=== PATIENT | male | born 1980 | race Hispanic/Latino ===

== ENCOUNTER 2018-11-20 12:11 | Emergency (ER) | payer SELFPAY ==
--- NOTE | 2018-11-20 14:07 | RAD REPORT ---
EXAM DESCRIPTION: RAD - Shoulder Left 2 View - 11/20/2018 2:00 pm CLINICAL HISTORY: Left shoulder pain status post fall FINDINGS: No fracture is seen. Mild widening of the AC joint may indicate a sprain of the ligament
--- NOTE | 2018-11-20 14:18 | EDPHYS ---
Physician Documentation [facility] Name: Nate Grant Age: 38 yrs Sex: Male : 1980 Arrival Date: 11/20/2018 Time: 12:14 Bed 10 Private MD: ED Physician Trenton Humphries Historical: - Allergies: 11/20 12:44 No Known Allergies; tw2 - Home Meds: 12:44 None [Active]; tw2 - PMHx: 12:44 None; tw2 - PSHx: 12:44 None; tw2 - Immunization history:: Adult Immunizations. - Social history:: Smoking status: . - Ebola Screening: : Patient denies travel to an Ebola-affected area in the 21 days before illness onset. Vital Signs: 12:44 BP 145 / 78; Pulse 86; Resp 19; Temp 97.9(TE); Pulse Ox 95% on R/A; Weight 161.03 kg tw2 (R); Pain 10/10; MDM: 13:31 Patient medically screened. ps1 11/20 12:51 Order name: Shoulder Left (2 View) XRAY; Complete Time: 14:16 snw Administered Medications: No medications were administered Disposition: 11/20/18 14:16 Discharged to Home. Impression: Sprain of left acromioclavicular joint. - Condition is Stable. - Discharge Instructions: Shoulder Sprain, How to Use a Sling, [id number]-[id number]. - Prescriptions for Anaprox DS 550 mg Oral Tablet - take 1 tablet by ORAL route every 12 hours As needed; 20 tablet. Robaxin 500 mg Oral Tablet - take 2 tablet by ORAL route every 6 hours As needed; 40 tablet. Medrol (Trevor) 4 mg Oral Tablets, Dose Pack - take 1 tablet by ORAL route as directed - follow package instructions; 1 packet. - Work release form, Medication Reconciliation Form, Thank You Letter, Antibiotic Education, Prescription Opioid Use form. - Follow up: Private Physician; When: As needed; Reason: Further diagnostic work-up, Recheck today's complaints, Continuance of care, Re-evaluation by your physician. Follow up: Emergency Department; When: As needed; Reason: Worsening of condition. - Problem is new. - Symptoms are unchanged. Addendum: 12/18/2018 13:26 Addendum: 38 y/o M presenting with L shoulder and clavicle pain from a fall. States p s1 that he has decreased ROM 2/2 pain. No obvious deformity. No SOB. Pain rated as moderate and worse with movement. ROS: No LOC, PHELPS, SOB, CP, N,V,D, swelling, edema, bleeding. PHY: Aox3, appears comfortable, NCAT, PERRL, EOMI, CTAB, RRR, - pulse deficits, Abd obese, SNT. MSK: normal except affected limb., Mild TTP to L clavicle and shoulder. No subluxation noted. ROM intact but restricted 2/2 pain. XR: no fx or dislocation. POC: Home with sling and pain meds. Reevaluation by provider in 2 weeks if symptoms persist. Consideration for MRI for PT vs surgical intervention. . Signatures: Dispatcher [employer] Olivia Wang RN RN tw2 Trenton Humphries MD MD ps1 Corrections: (The following items were deleted from the chart) 11/20 14:34 14:16 11/20/2018 14:16 Discharged to Home. Impression: Sprain of left acromioclavicular tw2 joint. Condition is Stable. Forms are Medication Reconciliation Form, Thank You Letter, Antibiotic Education, Prescription Opioid Use. Follow up: Private Physician; When: As needed; Reason: Further diagnostic work-up, Recheck today's complaints, Continuance of care, Re-evaluation by your physician. Follow up: Emergency Department; When: As needed; Reason: Worsening of condition. Problem is new. Symptoms are unchanged. ps1
--- NOTE | 2018-11-20 14:18 | ER ---
Nurse's Notes [facility] Name: Nate Grant Age: 38 yrs Sex: Male : 1980 Arrival Date: 11/20/2018 Time: 12:14 Bed 10 Private MD: Diagnosis: Sprain of left acromioclavicular joint Presentation: 11/20 12:42 Presenting complaint: Patient states: a couple of days ago i fell and landed on my LEFT tw2 arm and shoulder, but my LEFT shoulder hurts real bad and my bone by my neck (clavicle). Transition of care: patient was not received from another setting of care. Onset of symptoms was November 20, 2018. Risk Assessment: Do you want to hurt yourself or someone else? Patient reports no desire to harm self or others. Initial Sepsis Screen: Does the patient meet any 2 criteria? No. Patient's initial sepsis screen is negative. Does the patient have a suspected source of infection? No. Patient's initial sepsis screen is negative. Care prior to arrival: None. 12:42 Method Of Arrival: Ambulatory tw2 12:42 Acuity: BEATRIZ 4 tw2 Triage Assessment: 12:44 General: Appears in no apparent distress. obese, Behavior is calm, cooperative, tw2 appropriate for age. Pain: Complains of pain in left arm. Musculoskeletal: Circulation, motion, and sensation intact. Range of motion: limited in left shoulder. Injury Description: pt fell 2 weeks ago. Historical: - Allergies: 12:44 No Known Allergies; tw2 - Home Meds: 12:44 None [Active]; tw2 - PMHx: 12:44 None; tw2 - PSHx: 12:44 None; tw2 - Immunization history:: Adult Immunizations. - Social history:: Smoking status: . - Ebola Screening: : Patient denies travel to an Ebola-affected area in the 21 days before illness onset. Screenin:30 Abuse screen: Denies threats or abuse. Denies injuries from another. Nutritional iw screening: No deficits noted. Tuberculosis screening: No symptoms or risk factors identified. Fall Risk None identified. Assessment: 13:29 General: Appears in no apparent distress. Behavior is calm, cooperative. Pain: iw Complains of pain in left shoulder. Neuro: Level of Consciousness is awake, alert, obeys commands, Moves all extremities. Cardiovascular: Capillary refill < 3 seconds in bilateral fingers Patient's skin is warm and dry. Respiratory: Respiratory effort is even, unlabored, Respiratory pattern is regular. GI:. Derm: Skin is intact, is healthy with good turgor. Musculoskeletal: Range of motion: limited in left shoulder. 14:32 Reassessment: Patient appears in no apparent distress at this time. No changes from tw2 previously documented assessment. Patient and/or family updated on plan of care and expected duration. Pain level reassessed. Patient is alert, oriented x 3, equal unlabored respirations, skin warm/dry/pink. Vital Signs: 12:44 BP 145 / 78; Pulse 86; Resp 19; Temp 97.9(TE); Pulse Ox 95% on R/A; Weight 161.03 kg tw2 (R); Pain 10/10; ED Course: 12:14 Patient arrived in ED. rg4 12:43 Triage completed. tw2 12:43 Arm band placed on. tw2 13:23 Bed in low position. Call light in reach. tw2 13:29 Fadumo Henderson, RN is Primary Nurse. iw 13:29 Trenton Humphries MD is Attending Physician. ps1 14:00 Shoulder Left (2 View) XRAY In Process Unspecified. EDMS 14:32 No provider procedures requiring assistance completed. Patient did not have IV access tw2 during this emergency room visit. Administered Medications: No medications were administered Outcome: 14:16 Discharge ordered by . ps1 14:32 Discharged to home ambulatory. tw2 14:32 Condition: stable 14:32 Discharge instructions given to patient, Instructed on discharge instructions, follow up and referral plans. no drinking with medication, no driving heavy equipment, medication usage, Demonstrated understanding of instructions, follow-up care, medications, Prescriptions given X 3. 14:34 Patient left the ED. tw2 Signatures: Dispatcher [employer] EDMS Fadumo Henderson, CIERRA NORTON iw Olivia Roberts RN RN 2 Deana Quintero rg4 Trenton Humphries MD MD ps1
== END 2018-11-20 14:34 | disposition home or self-care (01) ==
LOC: ER 12:11
DX: S43.52XA Sprain of left acromioclavicular joint, initial encounter (principal)
CPT/HCPCS: 99283